=== PATIENT | male | born 1985 | race African-American/Black ===

== ENCOUNTER 2022-07-08 12:22 | Emergency (ER) | payer OTHER ==
[2022-07-08 12:27] VITALS: BP 113/60; PULSE 71; RESP 18; TEMP 97.3; BMI 23.7
[2022-07-08] MEDS ORDERED: cefTRIAXone SODIUM 1 GM VIAL ONE (13:03)
[2022-07-08] MEDS ORDERED: LIDOCAINE HCL 1%, 10 MG/ML (10ML VIAL) MDV ONE (13:06)
[2022-07-08] MEDS ORDERED: LIDOCAINE HCL 1%, 10 MG/ML (50 mL VIAL) SQ ONE (13:06)
[2022-07-08] MEDS ORDERED: DOXYCYCLINE HYCLATE 100 MG CAPSULE PO ONE ×2 (13:09→13:15)
[2022-07-08 14:05] LABS: EPI CELLS 2 /uL (0-25.1); HYALINE CASTS 0 /uL (0-3.1); URINE APPEARANCE CLOUDY; URINE BACTERIA 213 /uL (0-1359); URINE BILIRUBIN NEGATIVE (NEGATIVE); URINE COLOR YELLOW; URINE GLUCOSE (UA) NEGATIVE (NEGATIVE); URINE KETONE TRACE (NEGATIVE); URINE LEUK ESTERASE 3+ (NEGATIVE); URINE NITRITE NEGATIVE (NEGATIVE); URINE PROTEIN TRACE (NEGATIVE); URINE RBC 77 /uL (0-23.9); URINE WBC 2642 /uL (0-25.8)
[2022-07-08 15:17] LABS: HIV INTERPRETATION NEGATIVE (NEGATIVE)
== END 2022-07-08 14:47 | disposition home or self-care (01) ==
LOC: JERFT 12:22
DX: R36.9 Urethral discharge, unspecified (principal); R30.0 Dysuria; S01.512D Laceration without foreign body of oral cavity, subsequent encounter; Y04.0XXD Assault by unarmed brawl or fight, subsequent encounter
CPT/HCPCS: 36415; 81003; 86780; 87389; 87491; 87591; 87661; 96372; 99284-25

== ENCOUNTER 2023-03-15 17:15 | Emergency (ER) | payer SELFPAY ==
[2023-03-15 17:48] VITALS: BP 111/73; PULSE 81; RESP 16; TEMP 99.4; BMI 29.7
[2023-03-15] MEDS ORDERED: FLUORESCEIN NA 1 EA STRIP OD ONE (20:12)
[2023-03-15] MEDS ORDERED: FLUORESCEIN NA 1 EA STRIP ONE (20:13)
== END 2023-03-15 22:15 | disposition home or self-care (01) ==
LOC: JERFT 17:15 → JER 17:15 → JERFT 22:15
DX: H57.11 Ocular pain, right eye (principal); S05.91XA Unspecified injury of right eye and orbit, initial encounter; H53.459 Other localized visual field defect, unspecified eye; H57.89 Other specified disorders of eye and adnexa
CPT/HCPCS: 70486-TC; 99284-25